=== PATIENT | male | born 1970 | race Caucasian/White ===

== ENCOUNTER 2017-03-06 08:25 | Emergency (ER) | payer OTHER ==
[~2017-03-06] VITALS: Ht 180.3 cm; Wt 90.7 kg
--- NOTE | 2017-03-06 09:10 | ED AMS/SEIZURE/WEAK/DIZZY ---
History of Present Illness General Chief Complaint: General Adult Stated Complaint: SEVERE VERTIGO, +N BACK PAIN S/P FALL X 5DAYS AGO Source: patient Exam Limitations: no limitations Vital Signs & Intake/Output Vital Signs & Intake/Output Vital Signs Date Time Temp Pulse Resp B/P B/P Pulse O2 O2 Flow FiO2 Mean Ox Delivery Rate 03/06 1020 98.6 77 18 132/84 98 Room Air 03/06 0851 98 Room Air 03/06 0832 97.0 64 20 145/91 98 Room Air Allergies Coded Allergies: ezetimibe (From [facility]) (LEG CRAMPS 03/06/17) Triage Note: PT C/O SEVERE DIZZINESS SINCE SUNDAY. STATES 02/23/17 FELL IN SHOWER, NO LOC, NO HEADSTRIKE. C/O LEFT SIDE PAIN FROM FALL. STATES OCCASIONAL NAUSEA WITH DIZZINESS. STATES HE IS UNDER A LOT OF STRESS RECENTLY Triage Nurses Notes Reviewed? yes HPI: 47 year old male with PMH of smoking and HLD presents with complaints of vertigo and several falls. The patient reports recurrent brief episodes of vertigo with complaints of the room spinning multiple times starting three days ago. The patient's episodes of vertigo are aggravated by changes in position both sitting up and laying down. The patient fell off a two step ladder due to one of these episodes at work. He also fell in the shower ten days ago but reportedly unrelated to his vertigo and has some mild left sided pain since that fall. The patient does not have have blurry vision, headache, eye pain, fevers, chills, rhinorrhea, sore throat, odynophagia or ear pain. The patient does report sinus congestion, and right frontal sinus tenderness, conjuctival injection, and sick contacts and smoking more lately due to stress of father's illness. (Sal Walter MD) Reconcile Medications Amoxicillin/Potassium Clav (Augmentin 875-125 Tablet) 875 MG-125 MG TABLET 1 TAB PO BID SINUSITIS Lactobacillus Acidophilus (Probiotic) 10 BILLION CELL CAPSULE 1 CAP PO TID PROPHYLAXIS ON ABX Meclizine HCl 25 MG TABLET 1 TAB PO TIDPRN VERTIGO Scopolamine 1 MG/3 DAY PATCH.TD.3 1 PATCH TD Q72 vertigo (Peri LAM,Han) Past History Travel History Traveled to [place] past 21 day No Medical History Any Pertinent Medical History? see below for history Cardiovascular: hyperlipidemia Surgical History Surgical History: non-contributory Psychosocial History What is your primary language Burmese Tobacco Use: Quit <30 days ago ETOH Use: occasional use Illicit Drug Use: denies illicit drug use Family History Hx Contributory? No (Sal Walter MD) Review of Systems Review of Systems Constitutional: Denies: chills, fever. EENTM: Reports: nasal congestion. Denies: blurred vision, double vision, eye pain, eye drainage, eye tearing, ear discharge, ear pain, hearing changes, nasal pain, throat pain, throat swelling, mouth pain, tooth pain. Respiratory: Denies: cough, short of breath. Cardiovascular: Denies: chest pain, palpitations, peripheral edema, syncope. GI: Reports: nausea. Denies: abdominal pain, constipation, diarrhea, vomiting. Genitourinary: Denies: dysuria, frequency. Musculoskeletal: Reports: no symptoms. Skin: Reports: no symptoms. Neurological/Psychological: Reports: anxiety. Denies: headache, paresthesia, weakness. Hematologic/Endocrine: Reports: no symptoms. Immunologic/Allergic: Reports: no symptoms. All Other Systems: Reviewed and Negative (Sal Walter MD) Physical Exam Physical Exam General Appearance: well developed/nourished, no apparent distress, alert, awake , comfortable Head: atraumatic, normal appearance Eyes: Bilateral: normal appearance, PERRL, EOMI. 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 No CVA/TIA Diagnosis No Sepsis Present: No Sepsis Focused Exam Completed? No (Sal Walter MD) Physical Exam Neck: normal inspection, supple, full range of motion, no midline tenderness Peripheral Pulses: 4+ carotid (R), 4+ carotid (L) Back: normal inspection, normal range of motion, no vertebral tenderness Reflexes: 2+: bicep (R), bicep (L). Skin: intact, normal color, warm/dry Lymphatic: adenopathy (Han Whitt MD) Progress Differential Diagnosis: benign positional vertigo, CVA/stroke, labrynthitis, migraine AMAYA, vertebrobasilar insuff, VESTIBULAR DYSFUNCTION Plan of Care: Orders Procedure Date/time Status TROPONIN LEVEL 03/06 907 Complete COMPREHENSIVE METABOLIC PANEL 03/06 907 Complete CBC WITHOUT DIFFERENTIAL 03/06 907 Complete EKG 03/06 0834 Active Laboratory Tests 03/06/17 0915: Anion Gap 15, Estimated GFR > 60, BUN/Creatinine Ratio 22.5, Glucose 108 H, Calcium 9.6, Total Bilirubin 0.4, AST 23, ALT 52, Alkaline Phosphatase 79, Troponin I < 0.01, Total Protein 7.6, Albumin 4.6, Globulin 3.0, Albumin/ Globulin Ratio 1.5, CBC w Diff NO MAN DIFF REQ, RBC 5.13, MCV 88.2, MCH 30.3, RDW 13.0, MPV 7.5, Gran % 61.0, Lymphocytes % 30.6, Monocytes % 5.5, Eosinophils % 2.5, Basophils % 0.4, Absolute Granulocytes 4.1, Absolute Lymphocytes 2.0, Absolute Monocytes 0.4, Absolute Eosinophils 0.2, Absolute Basophils 0, PUBS MCHC 34.4 Initial ED EKG: normal sinus rhythm (Sal Walter MD) Diagnostic Imaging: Viewed by Me: CT Scan. Discussed w/RAD: CT Scan. Radiology Impression: 1. There are no acute bleeds or territorial infarcts. (Han Whitt MD) Departure Departure Disposition: HOME OR SELF CARE Condition: Stable Clinical Impression Primary Impression: Benign positional vertigo Qualifiers: Laterality: unspecified laterality Qualified Code: H81.10 - Benign paroxysmal vertigo, unspecified ear Secondary Impressions: Sinusitis Qualifiers: Sinusitis location: Qualified Code: H81.10 - Benign paroxysmal vertigo, unspecified ear Referrals: Jignesh Rosas MD (PCP/Family) Departure Forms: Customer Survey General Discharge Information Prescriptions: Current Visit Scripts Scopolamine 1 PATCH TD Q72 #5 PATCH Meclizine HCl 1 TAB PO TIDPRN #30 TAB Amoxicillin/Potassium Clav (Augmentin 875-125 Tablet) 1 TAB PO BID #14 TAB Lactobacillus Acidophilus (Probiotic) 1 CAP PO TID #30 CAP (Sal Walter MD) Departure Time of Disposition: 1015 Resident Co-Sign Statement Statement: ED Attending supervision documentation- x I saw and evaluated the patient. I have also reviewed all the pertinent lab results and diagnostic results. I agree with the findings and the plan of care as documented in the Resident's documentation. [] I have reviewed the ED Record and agree with the Resident's documentation. [] Additions or exceptions (if any) to the Resident's note and plan are summarized below: [] (Peri LAM,Han)
--- NOTE | 2017-03-06 09:28 | CT SCAN REPORT ---
EXAMINATION: CT HEAD WITHOUT CONTRAST CLINICAL INFORMATION: Fall. Assess for CVA or hemorrhage. COMPARISON: None. TECHNIQUE: Contiguous axial imaging was performed from the skull base to vertex without intravenous administration of contrast. DLP: 616.48 mGy-cm FINDINGS: There is no evidence of acute intracranial hemorrhage or territorial infarction. No abnormal mass effect or midline shift is seen. Rivera to white matter differentiation is well preserved. No extra-axial fluid collections are identified. The ventricles are normal in size. There is no abnormal attenuation within the brain parenchyma. There are no acute osseous findings. There is an incidental persistent metopic suture. There are no large scalp contusions or hematomas. The mastoid air cells are well-aerated. There is moderate mucoperiosteal thickening in the visualized left maxillary sinus, with trace mucoperiosteal thickening on the right. The frontal sinuses are not pneumatized. IMPRESSION: 1. There are no acute bleeds or territorial infarcts.
[2017-03-06 09:32] LABS: ABSOLUTE BASOPHIL COUNT 0 /CUMM (0.0-0.2); ABSOLUTE EOSINOPHIL COUNT 0.2 /CUMM (0.0-0.7); ABSOLUTE GRANULOCYTE CT 4.1 /CUMM (1.4-6.5); ABSOLUTE MONOCYTE COUNT 0.4 /CUMM (0.10-0.60); BASOPHIL % 0.4 % (0.0-2.0); EOSINOPHIL % 2.5 % (0-5); HEMATOCRIT 45.3 % (42-52); MEAN CORPUSCULAR HGB 30.3 PG (27.0-31.0); MEAN CORPUSCULAR HGB CONC 34.4 G/DL (33.0-37.0); MEAN CORPUSCULAR VOLUME 88.2 FL (80.0-94.0); MEAN PLATELET VOLUME 7.5 FL (7.4-10.4); PLATELET COUNT 231 /CUMM (130-400); RED BLOOD CELL CT 5.13 /CUMM (4.70-6.10); WHITE BLOOD CELL COUNT 6.7 /CUMM (4.8-10.8)
[2017-03-06] MEDS ORDERED: SCOPOLAMINE1 EAC1 TD (09:52)
[2017-03-06] MEDS ORDERED: AUGMENTIN 875-1 EACH PO (10:08)
[2017-03-06] MEDS ORDERED: PROBIOTIC1 EACH PO (10:08)
[2017-03-06] MEDS ORDERED: MECLIZINE HCL25 MG PO (10:08)
[2017-03-06 10:20] VITALS: BP 132/84
== END 2017-03-06 10:20 ==
LOC: ERH 08:25
DX: H81.10 Benign paroxysmal vertigo, unspecified ear (principal); J32.9 Chronic sinusitis, unspecified; Z87.891 Personal history of nicotine dependence
CPT/HCPCS: 93005; 93010